=== PATIENT | female | born 1960 | race Caucasian/White ===

== ENCOUNTER 2017-03-01 19:21 | Emergency (ER) | payer BC ==
[~2017-03-01] VITALS: Ht 147.3 cm; Wt 91.4 kg
[~2017-03-01 19:21] MED LIST: NOHOMEMEDS
[2017-03-01] MEDS ORDERED: PERCOCET 5/31 TABLET PO (21:56)
[2017-03-01 22:06] VITALS: BP 150/75
== END 2017-03-01 22:08 | disposition home or self-care (01) ==
LOC: EME 19:21
DX: G89.29 Other chronic pain (principal); M25.562 Pain in left knee; I10 Essential (primary) hypertension; Z88.0 Allergy status to penicillin; Z88.2 Allergy status to sulfonamides; F17.200 Nicotine dependence, unspecified, uncomplicated; Z88.5 Allergy status to narcotic agent
CPT/HCPCS: 73564; 99281; 99283

== ENCOUNTER 2017-07-03 16:23 | Emergency (ER) | payer BC ==
[~2017-07-03] VITALS: Ht 144.8 cm; Wt 87.4 kg
[~2017-07-03 16:23] MED LIST changes: +PERCOCET 5/31 TABLET PO
[2017-07-03] MEDS ORDERED: PERCOCET 5/31 TABLET PO (20:44)
[2017-07-03] MEDS ORDERED: SKELAXIN800 MG PO (20:44)
[2017-07-03 20:54] VITALS: BP 152/64
== END 2017-07-03 20:55 | disposition home or self-care (01) ==
LOC: EME 16:23
DX: S39.012A Strain of muscle, fascia and tendon of lower back, initial encounter (principal); X50.9XXA Other and unspecified overexertion or strenuous movements or postures, initial encounter; Y93.89 Activity, other specified; G89.29 Other chronic pain; Z88.0 Allergy status to penicillin; Z88.2 Allergy status to sulfonamides; Z88.1 Allergy status to other antibiotic agents; Z88.5 Allergy status to narcotic agent; Z88.8 Allergy status to other drugs, medicaments and biological substances
CPT/HCPCS: 99281; 99283

== ENCOUNTER 2017-07-17 20:50 | Emergency (ER) | payer BC ==
[~2017-07-17] VITALS: Ht 144.8 cm; Wt 87.3 kg
[~2017-07-17 20:50] MED LIST changes: +SKELAXIN800 MG PO
[2017-07-17] MEDS ORDERED: NORCO 5/3251 TABLET PO (23:14)
[2017-07-17] MEDS ORDERED: ROBAXIN750 MG PO (23:14)
[2017-07-17 23:40] VITALS: BP 165/99
== END 2017-07-17 23:41 | disposition home or self-care (01) ==
LOC: EME 20:50
DX: S39.012A Strain of muscle, fascia and tendon of lower back, initial encounter (principal); W10.9XXA Fall (on) (from) unspecified stairs and steps, initial encounter; Y93.89 Activity, other specified; I10 Essential (primary) hypertension; F17.200 Nicotine dependence, unspecified, uncomplicated; Z88.5 Allergy status to narcotic agent; Z88.2 Allergy status to sulfonamides; Z88.0 Allergy status to penicillin
CPT/HCPCS: 99281; 99284

== ENCOUNTER 2017-08-10 10:45 | Emergency (ER) | payer OTHER ==
[~2017-08-10] VITALS: Ht 144.8 cm; Wt 86.3 kg
[~2017-08-10 10:45] MED LIST changes: +NORCO 5/3251 TABLET PO; +ROBAXIN750 MG PO
[2017-08-10 10:48] VITALS: BP 178/91
== END 2017-08-10 13:10 | disposition home or self-care (01) ==
LOC: EME 10:45
DX: S93.602A Unspecified sprain of left foot, initial encounter (principal); S83.92XA Sprain of unspecified site of left knee, initial encounter; X50.1XXA Overexertion from prolonged static or awkward postures, initial encounter; W19.XXXA Unspecified fall, initial encounter; Y93.01 Activity, walking, marching and hiking; F17.200 Nicotine dependence, unspecified, uncomplicated
CPT/HCPCS: 73564; 73630; 99281; 99283

== ENCOUNTER 2017-12-17 20:23 | Emergency (ER) | payer OTHER ==
[~2017-12-17] VITALS: Ht 144.8 cm; Wt 86.0 kg
[2017-12-17] MEDS ORDERED: NORCO 5/3251 TABLET PO (21:25)
[2017-12-17 21:50] VITALS: BP 179/78
== END 2017-12-17 21:55 | disposition home or self-care (01) ==
LOC: EME 20:23
DX: S46.911A Strain of unspecified muscle, fascia and tendon at shoulder and upper arm level, right arm, initial encounter (principal); X50.0XXA Overexertion from strenuous movement or load, initial encounter; Z88.2 Allergy status to sulfonamides; Z88.0 Allergy status to penicillin; Z88.5 Allergy status to narcotic agent; Z88.8 Allergy status to other drugs, medicaments and biological substances
CPT/HCPCS: 73030; 99281; 99284

== ENCOUNTER 2018-01-27 14:08 | Emergency (ER) | payer OTHER ==
[~2018-01-27] VITALS: Ht 144.8 cm; Wt 87.6 kg
[2018-01-27] MEDS ORDERED: FLEXERIL10 MG PO (15:38)
[2018-01-27] MEDS ORDERED: MOTRIN600 MG PO (15:38)
[2018-01-27] MEDS ORDERED: PERCOCET 5/31 TABLET PO (15:38)
[2018-01-27 15:49] VITALS: BP 148/71
== END 2018-01-27 15:41 | disposition home or self-care (01) ==
LOC: EME 14:08
DX: M25.511 Pain in right shoulder (principal); I10 Essential (primary) hypertension; Z90.710 Acquired absence of both cervix and uterus; Z88.5 Allergy status to narcotic agent; Z88.2 Allergy status to sulfonamides; Z88.0 Allergy status to penicillin; Z88.1 Allergy status to other antibiotic agents; Z88.8 Allergy status to other drugs, medicaments and biological substances
CPT/HCPCS: 73030; 99281; 99284

== ENCOUNTER 2018-02-23 02:13 | Emergency (ER) | payer OTHER ==
[~2018-02-23] VITALS: Ht 144.8 cm; Wt 88.0 kg
[~2018-02-23 02:13] MED LIST changes: +FLEXERIL10 MG PO; +MOTRIN600 MG PO
[2018-02-23] MEDS ORDERED: LIDODERM 5% P1 PATCH TD (04:22)
[2018-02-23 04:50] VITALS: BP 197/108
== END 2018-02-23 04:52 | disposition home or self-care (01) ==
LOC: EME 02:13
DX: S40.011A Contusion of right shoulder, initial encounter (principal); W23.0XXA Caught, crushed, jammed, or pinched between moving objects, initial encounter; W20.8XXA Other cause of strike by thrown, projected or falling object, initial encounter; F17.200 Nicotine dependence, unspecified, uncomplicated
CPT/HCPCS: 73030; 99281; 99284

== ENCOUNTER 2018-03-12 19:47 | Emergency (ER) | payer OTHER ==
[~2018-03-12] VITALS: Ht 144.8 cm; Wt 90.1 kg
[~2018-03-12 19:47] MED LIST changes: +LIDODERM 5% P1 PATCH TD
[2018-03-12 20:34] LABS: HEMATOCRIT 36.6 % (36.0-46.0); MCH 28.8 PG (29.0-34.0); MCHC 32.8 G/DL (30.0-36.0); PLATELET COUNT 273 K/uL (156-360); RBC DIS.WIDTH-CV 15.1 % (11.8-14.6); RBC DIS.WIDTH-SD 48.6 % (39-53); RED BLOOD COUNT 4.16 M/uL (3.80-5.20); WHITE BLOOD COUNT 8.6 K/uL (4.1-10.2)
[2018-03-12 20:56] LABS: ALBUMIN 4.1 g/dL (3.2-4.8); CHLORIDE 108 mEq/L (99-109); POTASSIUM 3.8 mEq/L (3.7-5.4); SODIUM 142 mEq/L (136-147)
[2018-03-12 20:58] LABS: GLUCOSE 127 mg/dL (70-99); TOTAL PROTEIN 6.8 g/dL (6.4-8.3)
[2018-03-12 21:00] LABS: TOTAL BILIRUBIN 0.3 mg/dL (0.0-1.0)
[2018-03-12 21:02] LABS: ALKALINE PHOSPHATASE 90 IU/L (3-129); CREATININE 0.8 mg/dL (0.6-1.3); GFR ESTIMATE (CALCULATED) > 59 mL/min/
[2018-03-12 21:03] LABS: AST (GOT) 19 IU/L (2-34); UREA NITROGEN (BUN) 13 mg/dL (9-23)
[2018-03-12 21:05] LABS: ALT (GPT) 17 IU/L (3-49)
[2018-03-12 21:13] LABS: APPEARANCE CLEAR ((CLEAR)); BILIRUBIN NEGATIVE; BLOOD SMALL; COLOR STRAW ((YELLOW)); GLUCOSE (STRIP) NEGATIVE; KETONES NEGATIVE; LEUKOCYTES NEGATIVE; NITRITE NEGATIVE; PROTEIN (STRIP) NEGATIVE; SPECIFIC GRAVITY 1.009 (1.000-1.030); UROBILINOGEN 0.2 MG/DL (0.2-1.0)
[2018-03-12 21:35] LABS: BACTERIA NONE SEEN /HPF; EPITHELIAL CELLS RARE /HPF; MUCUS TRACE /LPF; RED BLOOD CELLS 0-5 /HPF (0-5); UCUL ADDED? NO; WHITE BLOOD CELLS 0-5 /HPF (0-5)
[2018-03-12] MEDS ORDERED: BENTYL20 MG PO (22:44)
[2018-03-12 22:56] VITALS: BP 187/95
== END 2018-03-12 22:58 | disposition home or self-care (01) ==
LOC: EME 19:47
DX: R10.11 Right upper quadrant pain (principal); R31.9 Hematuria, unspecified; I10 Essential (primary) hypertension; F17.200 Nicotine dependence, unspecified, uncomplicated; Z90.710 Acquired absence of both cervix and uterus; Z88.0 Allergy status to penicillin; Z88.5 Allergy status to narcotic agent; Z88.2 Allergy status to sulfonamides; Z88.1 Allergy status to other antibiotic agents; Z88.8 Allergy status to other drugs, medicaments and biological substances
CPT/HCPCS: 76705; 80053; 81003; 85027; 99281; 99284